=== PATIENT | male | born 1975 | race Caucasian/White ===

== ENCOUNTER → 2018-08-14 | Outpatient (CLI) | payer OTHER ==
[~2018-08-14] MED LIST: CLARITIN10 MG PO; MEDROL DOSEPAK4 MG PO; NKHM
== END | disposition home or self-care (01) ==
LOC: RAD 12:05
DX: M51.86 Other intervertebral disc disorders, lumbar region (principal); M54.41 Lumbago with sciatica, right side; M54.2 Cervicalgia; M53.82 Other specified dorsopathies, cervical region

== ENCOUNTER → 2018-08-27 | Outpatient (CLI) | payer OTHER ==
[~2018-08-27] MED LIST changes: +TRAMADOL HCL50 MG PO
== END | disposition home or self-care (01) ==
LOC: US 13:30
DX: R22.2 Localized swelling, mass and lump, trunk (principal)

== ENCOUNTER 2024-01-18 06:59 | Emergency (ER) | payer BC ==
[~2024-01-18] VITALS: Ht 185.4 cm; Wt 102.1 kg
[2024-01-18] MEDS ORDERED: SODIUM CHLORIDE 0.9% 1,000 ML IV ONE (07:30)
[2024-01-18 07:46] LABS: BASO % 0.2 % (0.0-1.0); EOS % 0.2 % (1.0-4.0); HEMATOCRIT 49.2 % (42.0-52.0); LYMPH # 1.2 10*3/uL (1.3-4.4); LYMPH % 9.3 % (27.0-41.0); MEAN CELL VOLUME 87.1 fl (80.0-94.0); MEAN CORPUSCULAR HGB CONC 33.3 g/dl (33.0-37.0); MONO # 0.7 10*3/uL (0.1-1.0); MONO % 5.4 % (3.0-9.0); NEUT # 10.4 10*3/uL (2.3-7.9); NEUT % 84.4 % (47.0-73.0); PLATELET COUNT AUTOMATED 251 10*3/uL (130-400); RED BLOOD COUNT 5.65 10*6/uL (4.50-5.90); RED CELL DISTRI WIDTH 13.2 % (0-14.5); WHITE BLOOD COUNT 12.3 10*3/uL (4.8-10.8)
[2024-01-18] MEDS ORDERED: IOHEXOL 300 MG/ML 100 ML VIAL IV ONE (07:50)
[2024-01-18 08:06] LABS: ALKALINE PHOSPHATASE 157 U/L (46-116); BUN 14 mg/dl (9-23); CHLORIDE 105 mmol/L (98-107); LIPASE 23 U/L (12-53); SGPT/ALT 10 U/L (5-49); TOTAL PROTEIN 7.2 gm/dL (6.0-8.0)
[2024-01-18 08:10] LABS: ETHYL ALCOHOL < 3.0 mg/dl (<3)
[2024-01-18 09:55] LABS: BILIRUBIN Negative (Negative); BLOOD Negative (Negative); CLARITY Clear (Clear); COLOR Yellow (Yellow); GLUCOSE Negative (Negative); KETONE 1+ (Negative); LEUKO ESTERASE Negative (Negative); NITRITE Negative (Negative); PH 5.5 (4.5-8.0); SPECIFIC GRAVITY >= 1.030 (1.001-1.030)
[2024-01-18 10:00] LABS: URINE AMPHETAMINES Negative (1000ng/ml); URINE BARBITURATES Negative (200ng/ml); URINE BENZODIAZEPINES Negative (200ng/ml); URINE CANNABINOIDS (THC) Positive (50ng/ml); URINE COCAINE Negative (300ng/ml); URINE METHADONE Negative (300ng/ml); URINE OPIATES Negative (300ng/ml); URINE PHENCYCLIDINE Negative (25ng/ml)
[2024-01-18] MEDS ORDERED: Ondansetron Hydrochloride 4 MG/2 ML VIAL IV ONE (10:00)
[2024-01-18 10:11] LABS: MUCOUS 3+
[2024-01-18] MEDS ORDERED: HYDROmorphONE Hydrochloride 0.5 MG/0.5 ML SYRINGE IV ONE (12:40)
== END 2024-01-18 13:24 | disposition short-term general hospital (02) ==
LOC: ED 06:59
PROVIDERS: Internal Medicine
DX: K56.1 Intussusception (principal); C85.90 Non-Hodgkin lymphoma, unspecified, unspecified site; R11.2 Nausea with vomiting, unspecified; Z98.890 Other specified postprocedural states; Z90.49 Acquired absence of other specified parts of digestive tract; Z87.891 Personal history of nicotine dependence